=== PATIENT | female | born 1980 | race Caucasian/White ===

== ENCOUNTER 2021-09-02 16:24 | Emergency (ER) | payer OTHER ==
[~2021-09-02 16:24] MED LIST: BENTYL 20MG TAB20 MG PO; ZOFRAN4 MG PO
[2021-09-02 17:02] LABS: HEMOGLOBIN 14.1 gm/dl (12.3-15.3); RED BLOOD COUNT 5.45 M/UL (4.00-5.10); WHITE BLOOD COUNT 17.4 K/UL (4.5-11.0)
[2021-09-02 17:35] LABS: BUN/CREATININE RATIO 17 (0-10)
[2021-09-02] MEDS ORDERED: BROMFED DM COU473 ML PO (19:21)
[2021-09-02] MEDS ORDERED: ZITHROMAX250 MG PO (19:21)
[2021-09-02] MEDS ORDERED: DOXYCYCLINE MO100 MG PO (19:21)
[2021-09-04 00:37] LABS: ACINETOBACTER BAUMANNII Not Detected (Negative); ENTEROCOCCUS Not Detected (Negative); ESCHERICHIA COLI Not Detected (Negative); KLEBSIELLA OXYTOCA Not Detected (Negative); KLEBSIELLA PNEUMONIAE Not Detected (Negative); KPC-CARBAPENEM-RESISTANCE GENE Not Detected (Negative); STAPHYLOCOCCUS AUREUS Not Detected (Negative); STREP AGALACTIAE (GROUP B) Not Detected (Negative); STREP PYOGENES (GROUP A) Not Detected (Negative); STREPTOCOCCUS Not Detected (Negative); vanA/B (VANCOMYCIN RESIST GENE Not Detected (Negative)
[2021-09-04 00:38] LABS: CANDIDA ALBICANS Not Detected (Negative); CANDIDA KRUSEI Not Detected (Negative); CANDIDA TROPICALIS Not Detected (Negative); HAEMOPHILUS INFLUENZAE Not Detected (Negative); PROTEUS Not Detected (Negative); PSEUDOMONAS AERUGINOSA Not Detected (Negative); SERRATIA MARCESANS Not Detected (Negative)
[2021-09-04 01:54] LABS: STAPHYLOCOCCUS DETECTED (Negative); mecA (METHICILLIN RESIST GENE DETECTED (Negative)
== END 2021-09-02 22:31 | disposition home or self-care (01) ==
LOC: ER1 16:24
PROVIDERS: Nurse Practitioner; Physician Assistant
DX: R07.89 Other chest pain (principal); R10.12 Left upper quadrant pain; F17.200 Nicotine dependence, unspecified, uncomplicated; E11.9 Type 2 diabetes mellitus without complications; Z88.2 Allergy status to sulfonamides
CPT/HCPCS: 71045; 80053; 81001; 82550; 82553; 83605; 83690; 83874; 84484; 84703; 85025; 87040; 87077; 87086; 87150; 96374; 96375; 99285; J0696; J0780; J1100; J1200; J1885; J2405; U0002

== ENCOUNTER 2021-09-04 07:04 | Emergency (ER) | payer OTHER ==
[~2021-09-04 07:04] MED LIST changes: +BROMFED DM COU473 ML PO; +DOXYCYCLINE MO100 MG PO; +ZITHROMAX250 MG PO
[2021-09-04 08:38] LABS: HEMOGLOBIN 12.5 gm/dl (12.3-15.3); RED BLOOD COUNT 5.07 M/UL (4.00-5.10)
[2021-09-04 08:43] LABS: WHITE BLOOD COUNT 12.1 K/UL (4.5-11.0)
[2021-09-04 08:56] LABS: BUN/CREATININE RATIO 18 (0-10)
== END 2021-09-04 11:05 | disposition home or self-care (01) ==
LOC: ER1 07:04
PROVIDERS: Physician Assistant Medical
DX: R79.9 Abnormal finding of blood chemistry, unspecified (principal); E11.9 Type 2 diabetes mellitus without complications; Z88.2 Allergy status to sulfonamides; F17.210 Nicotine dependence, cigarettes, uncomplicated
CPT/HCPCS: 71045; 80053; 85025; 87040; 99283; J7030

== ENCOUNTER → 2021-11-26 | Outpatient (CLI) | payer OTHER | LOC: KOH-I 11-19 15:00 | DX: I73.9 Peripheral vascular disease, unspecified (principal) | CPT/HCPCS: 93925 ==